=== PATIENT | female | born 1960 | race Caucasian/White ===

== ENCOUNTER 2016-07-15 06:11 | Day surgery (SDC) | payer OTHER ==
[~2016-07-15] VITALS: Ht 147.3 cm; Wt 60.2 kg
[~2016-07-15 06:11] MED LIST: HYD25 PO
[2016-07-15] MEDS ORDERED: AMLO-145 PO (06:52)
[2016-07-15 06:55] VITALS: Ht 147.3 cm; Wt 60.2 kg
[2016-07-15] MEDS ORDERED: FENTAnyl 50 MCG/ML VIAL ONE (09:17)
[2016-07-15] MEDS ORDERED: MIDAZOLAM 1 MG/ML 2 ML INJ ONE ×2 (09:17)
--- NOTE | 2016-07-15 11:39 | GILP ---
DATE OF PROCEDURE: 07/15/2016 PROCEDURE PERFORMED: EGD with biopsy and colonoscopy with polypectomy and biopsy. INDICATION: A 55-year-old female undergoing this procedure for colon cancer screening and also for a burning sensation in the stomach. The risk of the procedure, related and unrelated complications, sedative risks, alternatives discussed and informed consent was obtained. DESCRIPTION OF PROCEDURE: The patient was brought to the GI lab, sedated with Versed and fentanyl, total required 4 mg of Versed and 100 mcg of fentanyl. After optimum sedation, scope was passed wit h much ease into esophagus which was grossly within normal limits. Z line was at 35 cm. Stomach mu cosa revealed chronic gastritis. Four biopsies obtained to rule out H. pylori infection, missed bio psies were obtained randomly. There are 4 to 5 localized 1 cm plaque or AVM. One of them was biops ied to make 100% sure that this was not AVM and was a plain reddish plaque. Duodenum, first and seco nd part appeared normal. Retroversion was normal. Scope was straightened out and removed with good patient tolerance. IMPRESSION 1. Normal esophagus. 2. Z line at 35 cm. 3. 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 4. Chronic gastritis. 5. Normal duodenum. PLAN: Review histopathology. COLONOSCOPY: The patient was turned around, scope was passed with much ease into rectum, advanced t hrough sigmoid, descending, all the way into the cecum. There was a flat polyp identified in the pr ececal area 1 cm in diameter, successfully removed by cold snare technique. Polyp was retrieved and sent for analysis. Appendix was normal. IC valve was normal. Peeped into terminal ileum which wa s normal. The rest of the colon appeared normal. There was an AVM at 30 cm, 1 cm in diameter. Re troversion also was normal. There is some whitish plaque about 1 to 2 mm in diameter, both in the sigmoid colon and in the ascending colon. Two of them were biopsied and sent for analysis. Scope w as then removed with good patient tolerance. IMPRESSION 1. Flat 1 cm polyp in the presacral area successfully removed by cold snare technique. 2. 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 3. Multiple whitish 2 mm plaque, biopsy taken. 4. Normal retroflexed PLAN: Review histopathology. The patient needs to come back to the office for path results and fol lowup. Dictated By: KAREN ROCK/KRISTIN Conf#: [id number] DID#: [id number]
== END 2016-07-15 10:14 | disposition home or self-care (01) ==
LOC: GIL 06:11
PROVIDERS: ATTEND Internal Medicine Gastroenterology
DX: Z12.11 Encounter for screening for malignant neoplasm of colon (principal); K29.50 Unspecified chronic gastritis without bleeding; D12.0 Benign neoplasm of cecum; I10 Essential (primary) hypertension
CPT/HCPCS: 43239; 45385; 88305; 88312; J2250; J3010; Z7610